=== PATIENT | female | born 1935 | race Caucasian/White ===

== ENCOUNTER → 2016-10-07 | Outpatient (CLI) | payer MEDICARE ==
[~2016-10-07] MED LIST: AMLO5TAB2 PO; AMLO5TAB96 PO; ASPI81 PO; ATOR40TA16 PO; CALC600T34 PO; CHOL400D2 PO; DORZ1SOL2 OU; DORZ2SOL7 EACH EYE; ESCI10TA PO; GLUC1CAP14 PO; GLUC500C56 PO; MULTTAB67 PO; NAPR500 PO; OMEG1CAP53 PO; PREV15CA20 PO; SIMV20 PO; TELM40 PO; ULTR50TA5 PO; VITA400C28 PO; VITATAB56 PO
[2016-10-07 14:42] LABS: AUTOMATED NEUTROPHIL # 1.9 TH/MM3 (1.8-7.7); BASOPHIL % 0.5 % (0.0-2.0); EOSINOPHIL # 0.1 TH/MM3 (0-0.4); HEMATOCRIT 36.8 % (35.0-46.0); HEMO FLAGS DIFF FINAL; LYMPHOCYTE # 2.2 TH/MM3 (1.0-4.8); MEAN CELL VOLUME 93.3 FL (80.0-100.0); MEAN CORPUSCULAR HEMOGLOBIN 31.4 PG (27.0-34.0); MEAN CORPUSCULAR HGB CONC 33.6 % (32.0-36.0); MONO % 10.8 % (0.0-8.0); NEUT % 40.7 % (16.0-70.0); PLATELET COUNT 211 TH/MM3 (150-450); RED BLOOD COUNT 3.94 MIL/MM3 (4.00-5.30); RED CELL DISTRIBUTION WIDTH 13.7 % (11.6-17.2); WHITE BLOOD COUNT 4.7 TH/MM3 (4.0-11.0)
[2016-10-07 14:46] LABS: APTT (PATIENT) 26.6 SEC (24.3-30.1); INTERNATIONAL NORMALIZED RATIO 0.9 RATIO; PROTHROMBIN TIME - PATIENT 10.3 SEC (9.8-11.6)
[2016-10-07 14:49] LABS: ALT (GPT) 23 U/L (10-53); ANION GAP 6 MEQ/L (5-15); AST (GOT) 19 U/L (15-37); BICARBONATE 32.1 MEQ/L (21.0-32.0); BLOOD UREA NITROGEN 12 MG/DL (7-18); CHLORIDE 98 MEQ/L (98-107); GLOMERULAR FILTRATION RATE 106 ML/MIN (>89); GLUCOSE,FASTING 85 MG/DL (74-99); POTASSIUM 4.1 MEQ/L (3.5-5.1); SODIUM (NA) 136 MEQ/L (136-145)
[2016-10-07 14:52] LABS: ALKALINE PHOSPHATASE 89 U/L (45-117); TOTAL BILIRUBIN ADULT 0.4 MG/DL (0.2-1.0)
--- NOTE | 2016-10-07 15:40 | RADRPT ---
EXAM DATE/TIME: 10/07/2016 14:43 [place] COMPARISON: No previous studies available for comparison. INDICATIONS : Evaluate for pneumonia, pneumothorax, or communicable disease. Pre op for hysterectomy. MEDICAL HISTORY : None. SURGICAL HISTORY : None. ENCOUNTER: Initial ACUITY: 1 day PAIN SCORE: 0/10 LOCATION: Bilateral chest FINDINGS: Lungs are slightly hyperexpanded with mild diffuse interstitial prominence. No focal pleural or paren chymal opacities. Cardiomediastinal contours are within normal limits. Bony thorax is intact. CONCLUSION: 1. Mild lung hyperexpansion may reflect some degree of obstructive pulmonary disease. 2. Otherwise, no acute cardiopulmonary disease. Raheem Peña MD on October 07, 2016 at 15:18 Board Certified Radiologist. This report was verified electronically.
--- NOTE | 2016-10-08 12:09 | EKG ---
Date Performed: 10/07/2016 Time Performed: 14:13:53 PTAGE: 80 years EKG: SINUS BRADYCARDIA WITH FIRST DEGREE AV BLOCK RIGHT BUNDLE BRANCH BLOCK ABNORMAL ECG NO PREVIOUS TRACING DOCTOR: Jono Perez Interpretating Date/Time 10/08/2016 12:07:56
== END ==
LOC: CPRE 13:51
PROVIDERS: ATTEND Obstetrics & Gynecology Gynecologic Oncology
DX: Z01.812 Encounter for preprocedural laboratory examination (principal); Z01.811 Encounter for preprocedural respiratory examination; Z01.810 Encounter for preprocedural cardiovascular examination; C54.1 Malignant neoplasm of endometrium; I44.0 Atrioventricular block, first degree; I45.10 Unspecified right bundle-branch block
CPT/HCPCS: 36415; 71020; 80053; 85025; 85610; 85730; 93005

== ENCOUNTER 2016-10-21 05:29 | Observation (INO) | payer MEDICARE ==
[~2016-10-21] VITALS: Ht 171.4 cm; Wt 66.8 kg
[~2016-10-21 05:29] MED LIST changes: -AMLO5TAB96 PO; -ASPI81 PO; -CALC600T34 PO; -DORZ1SOL2 OU; -GLUC500C56 PO; -NAPR500 PO; -OMEG1CAP53 PO; -PREV15CA20 PO; -SIMV20 PO; -ULTR50TA5 PO; -VITA400C28 PO
[2016-10-21] MEDS ORDERED: LEVOFLOXACIN 500 MG PREMIX INJ 100 ML IV SCH (06:00)
[2016-10-21] MEDS ORDERED: SODIUM CHLORIDE FLUSH PRN IV FLUSH (06:00)
[2016-10-21] MEDS ORDERED: HEPARIN SODIUM - SQ 10,000 UNITS/ML VIAL SQ SCH (06:00)
[2016-10-21] MEDS ORDERED: METRONIDAZOLE 500 MG/100 ML ISONTONIC SOLN IV SCH (06:00)
[2016-10-21 06:13] VITALS: BP 151/54; PULSE 63; RESP 16; TEMP 97.9; O2SAT 99
[2016-10-21] MEDS ORDERED: SODIUM CHLORID 0.9% 500 ML IV PRN (06:15)
[2016-10-21] MEDS ORDERED: INSULIN HUMAN REGULAR 1,000 UNITS/10 ML VIAL SQ PRN (06:15)
[2016-10-21] MEDS ORDERED: LACTATED RINGER'S 1000 ML IV PRN (06:15)
[2016-10-21] MEDS ORDERED: POVIDONE IODINE 5% (ANTISEPSIS KIT) 4 APPLICATIONS EACH NARE PRN (06:15)
[2016-10-21] MEDS ORDERED: CHLORHEXIDINE GLUCONATE 2 % 1 PACK (2 CLOTHS) TOPICAL PRN (06:15)
[2016-10-21] MEDS ORDERED: METOPROLOL TARTRATE 25 MG TAB PO PRN (06:15)
[2016-10-21] MEDS ORDERED: fentaNYL CITRATE 250 MCG/5 ML AMP ONE (08:49)
[2016-10-21] MEDS ORDERED: MIDAZOLAM HCL 2 MG/2 ML VIAL ONE (08:49)
[2016-10-21] MEDS ORDERED: ACETAMINOPHEN 1000 MG/100 ML VIAL IV ONE (08:49)
[2016-10-21] MEDS ORDERED: SODIUM CHLORIDE FLUSH BID IV FLUSH SCH (09:00)
[2016-10-21] MEDS ORDERED: LIDOCAINE 1%/EPINEPHrine 1:100,000 SOLN 30 ML VIAL INFIL ONE (09:14)
[2016-10-21] MEDS ORDERED: ONDANSETRON HCL 4 MG/2 ML VIAL IVP PRN (11:15)
[2016-10-21] MEDS ORDERED: SODIUM CHLORIDE 0.9% FLUSH 10 ML FLUSH IV FLUSH PRN (11:15)
[2016-10-21] MEDS ORDERED: diphenhydrAMINE HCL 25 MG CAP PO PRN (11:15)
[2016-10-21] MEDS ORDERED: LORazepam 0.5 MG TAB PO PRN (11:15)
[2016-10-21] MEDS ORDERED: traMADol HCL 50 MG TAB PO PRN (11:30)
[2016-10-21] MEDS: D5-1/2 NS + KCL 20 MEQ INJ 1,000 ML IV SCH ×2 (11:46→21:12)
[2016-10-21] MEDS ORDERED: *morphine SULFATE 8 MG/ML PERIprocedure ONLY ONE (11:55)
[2016-10-21] MEDS ORDERED: METHYLENE BLUE 100 MG/10 ML VIAL IV ONE (12:00)
[2016-10-21] MEDS ORDERED: NORMOSOL R INJ 2,000 ML IV ONE (12:00)
[2016-10-21] MEDS ORDERED: PHENYLEPH/NS 1000 MCG/10 ML SYR IV ONE (12:00)
[2016-10-21] MEDS ORDERED: KETOROLAC TROMETHAMINE 60 MG/2 ML (IM) VIAL IM ONE (12:00)
[2016-10-21] MEDS ORDERED: PROPOFOL 200 MG/20 ML AMP IV ONE (12:00)
[2016-10-21] MEDS ORDERED: NEOSTIGMINE 3 MG/3 ML SYR IV ONE (12:00)
[2016-10-21] MEDS ORDERED: DO NOT ADM ANY ANTICOAGULANT DRUGS PRN (12:00)
[2016-10-21] MEDS ORDERED: ONDANSETRON HCL 4 MG/2 ML VIAL IV PUSH ONE (12:00)
[2016-10-21] MEDS ORDERED: SILVER NITR/POTASSIUM NITRATE APPLICATORS TOPICAL ONE (12:00)
[2016-10-21] MEDS ORDERED: PILL SPLITTER OTHER PRN (12:00)
[2016-10-21] MEDS ORDERED: VECURONIUM BROMIDE 20 MG VIAL IV ONE (12:00)
[2016-10-21] MEDS ORDERED: ePHEDrine/NS 25 MG/5 ML SYR IV ONE (12:00)
[2016-10-21 13:45] VITALS: BP 153/68; PULSE 68; RESP 18; TEMP 95.5; O2SAT 96
--- NOTE | 2016-10-21 14:10 | PD.ONC.PN ---
Subjective Subjective Remarks Post op note: pt resting in bed with family at bedside c/o pain at midline incision site denies any n/v still sleepy Objective Data Date Time Temp Pulse Resp B/P Pulse Ox O2 Delivery O2 Flow Rate FiO2 10/21/16 13:45 95.5 68 18 153/68 96 10/21/16 13:00 97.0 62 18 154/66 98 Nasal Cannula 2 10/21/16 12:15 56 17 140/64 100 Nasal Cannula 2 10/21/16 12:00 51 13 133/60 98 Nasal Cannula 2 10/21/16 11:45 52 14 134/64 100 Nasal Cannula 2 10/21/16 11:30 52 14 144/67 100 Nasal Cannula 2 10/21/16 11:24 97.8 66 14 143/63 99 Nasal Cannula 2 10/21/16 06:13 97.9 63 16 151/54 99 10/21/16 10/21/16 10/21/16 07:00 15:00 23:00 Intake Total 2253 ml Output Total 2700 ml Balance -447 ml Laboratory Results Laboratory Tests Test 10/21/16 06:20 Blood Type O POSITIVE Antibody Screen NEGATIVE Blood Bank Comment Administered Medications Medications (Trade) Dose Ordered Sig/Man Route PRN Reason Start Time Stop Time Status Last Admin Dose Admin Potassium Chloride/Dextrose/ Sod Cl (D5-1/2 NS + KCl 20 Meq Inj) 1,000 ml @ 100 mls/hr Q10H IV 10/21/16 11:12 10/21/16 11:46 Objective Remarks GENERAL: Well-nourished, well-developed patient. SKIN: Warm and dry. HEAD: Normocephalic. EYES: No scleral icterus. No injection or drainage. CARDIOVASCULAR: Regular rate and rhythm without murmurs. RESPIRATORY: Breath sounds equal bilaterally. No accessory muscle use. GASTROINTESTINAL: Abdomen soft, SS are c/d/i EXTREMITIES: TEDs and SCDs MUSCULOSKELETAL: Adequate muscle tone. NEUROLOGICAL: No obvious focal deficit. Awake, alert, and oriented x3. PSYCHIATRIC: Appropriate mood and affect; insight and judgment normal. Assessment/Plan Problem List: (1) Post-operative state Status: Acute Plan: s/p RA lap hyst with BSO and peritoneal bx post op orders in the chart IV Toradol for pain, scheduled Percocet PRN OOB to chair REGGIE Buck D/C in AM anticipate discharge in morning (2) Endometrial cancer Status: Acute Plan: pt will follow up in projection technician/onc clinic in 2 weeks for final pathology Pippa Espino Oct 21, 2016 14:10
[2016-10-21 15:29] VITALS: O2SAT 96
[2016-10-21 15:32] VITALS: O2SAT 96
[2016-10-21 16:00] VITALS: BP 146/64; PULSE 74; RESP 18; TEMP 95.3
[2016-10-21] MEDS: KETOROLAC TROMETHAMINE 30 MG/ML (IVP) VIAL IVP SCH ×2 (18:06→21:54)
[2016-10-21 20:00] VITALS: BP 133/61; PULSE 66; RESP 16; TEMP 96.7; O2SAT 92
[2016-10-21] MEDS: SODIUM CHLORIDE 0.9% FLUSH 10 ML FLUSH IV FLUSH SCH (21:00)
[2016-10-21] MEDS: DORZOLAMIDE/TIMOLOL OPTH SOLN 10 ML BTL EACH EYE SCH (21:00)
[2016-10-21] MEDS ORDERED: ATORVASTATIN 40 MG TAB PO SCH (21:00)
[2016-10-22] VITALS: BP 119/50; PULSE 61; RESP 16; TEMP 97.3; O2SAT 92
[2016-10-22 04:00] VITALS: BP 133/56; PULSE 69; RESP 16; TEMP 96.6; O2SAT 94
[2016-10-22] MEDS: KETOROLAC TROMETHAMINE 30 MG/ML (IVP) VIAL IVP SCH ×2 (04:04→10:21)
[2016-10-22] MEDS ORDERED: ULTR50TA5 PO (06:48)
[2016-10-22] MEDS: D5-1/2 NS + KCL 20 MEQ INJ 1,000 ML IV SCH (07:12)
[2016-10-22] MEDS: SODIUM CHLORIDE 0.9% FLUSH 10 ML FLUSH IV FLUSH SCH (07:53)
[2016-10-22] MEDS: DORZOLAMIDE/TIMOLOL OPTH SOLN 10 ML BTL EACH EYE SCH (07:53)
[2016-10-22 08:00] VITALS: BP 143/57; PULSE 65; RESP 18; TEMP 96.9; O2SAT 92
[2016-10-22] MEDS ORDERED: LOSARTAN 50 MG TAB PO SCH (09:00)
[2016-10-22] MEDS ORDERED: ESCITALOPRAM OXALATE 10 MG TAB PO SCH (09:00)
[2016-10-22] MEDS ORDERED: amLODIPine BESYLATE 5 MG TAB PO SCH (09:00)
[2016-10-22 09:30] LABS: AUTOMATED NEUTROPHIL # 4.5 TH/MM3 (1.8-7.7); BASOPHIL % 0.3 % (0.0-2.0); EOSINOPHIL % 0.3 % (0.0-4.0); HEMATOCRIT 35.9 % (35.0-46.0); HEMO FLAGS DIFF FINAL; LYMPH % 25.3 % (9.0-44.0); LYMPHOCYTE # 1.7 TH/MM3 (1.0-4.8); MEAN CELL VOLUME 95.3 FL (80.0-100.0); MEAN CORPUSCULAR HEMOGLOBIN 30.6 PG (27.0-34.0); MEAN CORPUSCULAR HGB CONC 32.1 % (32.0-36.0); MONO % 8.8 % (0.0-8.0); NEUT % 65.3 % (16.0-70.0); PLATELET COUNT 188 TH/MM3 (150-450); RED BLOOD COUNT 3.76 MIL/MM3 (4.00-5.30); RED CELL DISTRIBUTION WIDTH 14.4 % (11.6-17.2); WHITE BLOOD COUNT 6.9 TH/MM3 (4.0-11.0)
[2016-10-22 09:51] LABS: BICARBONATE 26.7 MEQ/L (21.0-32.0); POTASSIUM 3.8 MEQ/L (3.5-5.1)
[2016-10-22 10:07] LABS: CALCIUM-PROTEIN CORRECTED 7.8 MG/DL (8.5-10.1)
--- NOTE | 2016-10-23 11:07 | MP ---
cc: MARCIN BROOKS KELLY L. MD DATE OF SURGERY: 10/21/2016 PREOPERATIVE DIAGNOSIS: Endometrial adenocarcinoma. POSTOPERATIVE DIAGNOSIS Endometrial adenocarcinoma. Pelvic adhesions. PROCEDURE Robotic-assisted laparoscopic hysterectomy bilateral salpingo-oophorectomy and pelvic peritoneal biopsies. SURGEON Mary SOFTWARE INTEGRATION DEVELOPER [place] oral surgery assistant. ANESTHESIA: General endotracheal anesthesia ESTIMATED BLOOD LOSS 200 cc IV FLUIDS 2000 cc URINE OUTPUT 2000 cc HISTORY 80-year-old female postmenopausal bleeding. She reports only 1 month duration found on exam and imaging to have prominent mass-like effect to the endometrium. She underwent endometrial biopsy which was interpreted as a grade 1 endometrial adenocarcinoma. She was counseled regarding options was in favor of surgical management. She is seen in the preop holding area where the findings and plan are again discussed and reviewed. Questions were answered. She expressed good understanding would like to move forward. FINDINGS Uterine cavity sounded to 8 cm. Her bladder capacity was well above expect, a Buck catheter was placed. She had estimated 1600 cc of fluid removed. The peritoneal cavity the tubes and ovaries grossly appeared normal. There were no appreciably enlarged lymph nodes. In the pelvis the bladder peritoneum was thickened unusual appearance and densely adherent to the uterine wall and cervix on the left side. The colon was adherent to the left pelvic sidewall with some adhesions in the posterior cul-de-sac. Also the cecum was adherent to the anterior abdominal wall on the right and a few other filmy bands of adhesions were noted. The liver diaphragm edges were smooth. The omentum grossly appeared normal. The large and small bowel and adjacent mesentery grossly appeared normal without peritoneal implants. The uterus once removed was evaluated by pathology it was a 4 cm exophytic tumor, although it arose from multiple locations in the endometrium and it extended into the endometrial cavity and estimated depth of invasion was only 1-2 mm. No areas of deep myometrial invasion or tenderness or cervical extension were noted. Statement of complexity; the complexity of the case was increased due to the adhesions as noted above, significant amount time was required to lyse adhesions to store normal anatomy and accomplish surgical objectives. Modifier should be applied accordingly. PROCEDURE The patient taken to the operating room placed in dorsal lithotomy position after general endotracheal anesthesia was administered. A time-out was undertaken, the patient was identified by sight recognition and hospital ID bracelet and the proposed procedure was reviewed and confirmed. She was carefully positioned in padded Lele stirrups. Her arms were padded and secured to the sides. She was further secured to operating table with egg crate padding and tape in across chest over the shoulder fashion. All sites noted be properly aligned with no malalignments or pressure points. She was prepped in sterile fashion, draped below the waist, placed in high lithotomy position, cervix grasped, uterine cavity was sounded and small Vcare manipulator was inserted and secured usual fashion. Buck catheter was placed in the bladder with large volume of urine output as noted above. We can change of sterile gloves was undertaken. We completed draping in anticipation of laparoscopy confirmed that an orogastric airway was in the stomach on suction. With manual elevation of the abdominal wall a 5 mm cannula was introduced into the left upper quadrant and an atraumatic entry was confirmed. Carbon dioxide gas was insufflated. 12 mm cannula placed in the midline above the umbilicus 8 mm cannulas placed in the right upper quadrant left lateral quadrant and the original 5-mm exchanged for a 8-mm cannula. She was placed in steep Trendelenburg position. Peritoneal washings were obtained for cytology. Adhesions were taken down using sharp dissection the anatomy was explored with findings as described above. The small bowel was folded back on its mesenteric root and three Ray-Corinna sponges were placed around the root of the small bowel mesentery. Robotic system brought into the operative field attached in usual fashion. Monopolar scissors, fenestrated bipolar forceps and progressed manipulators were placed in arms numbers one, two and three respectively and I took my place at the surgeon's console. Right round ligament was isolated, cauterized transected. The anterior and posterior leafs of the broad ligament were opened. The right ureter was identified. The right infundibulopelvic ligament was isolated, the intervening peritoneum was opened. The infundibulopelvic ligament was isolated to the level of the pelvic brim was cauterized and transected. Posterior peritoneum opened along the right side of the uterus and cervix and the right vesicouterine peritoneum was dissected off the lower uterine segment and cervix and additional adhesions were taken down. The right uterine vessels were skeletonized and cauterized and transected as were the cardinal paracervical and uterosacral ligaments. Adhesions were taken down mobilizing the colon from its attachments to the left pelvic sidewall freeing up the ovary from and adhesions in the posterior cul-de-sac and the round ligament was isolated, cauterized and transected as the anterior and posterior leafs of the broad ligament were further opened. The left ureter was identified left infundibulopelvic ligament was isolated. The intervening peritoneum was opened infundibulopelvic ligament was dissected to the level of the pelvic brim where was cauterized and transected. Posterior peritoneum taken down off the left side of uterus and cervix and additional lysis of adhesions was required to free the thickened and abnormal appearing peritoneal fold over near the left bladder peritoneum as it was adherent, to the uterine and cervical huitron. Somewhat making difficult to identify the border of the bladder but continued sharp dissection, blunt dissection allowed mobilization of the bladder below the level of the cervix. Now as the left uterine vessels were skeletonized, they were cauterized and transected as were the cardinal paracervical and uterosacral ligaments colpotomy was performed the cervix from the upper vagina and the specimen was the withdrawn including uterus, cervix, tubes and ovaries. Instruments one and three exchanged for needle drivers as a 0 Vicryl suture was introduced vaginal cuff was closed starting at the left corner full-thickness closure including the posterior peritoneum and edge of the uterosacral ligament, tied via instrument tie. The closure was held on countertraction as a running continuous full-thickness closure was carried across the vaginal cuff to the contralateral corner where similarly fixed and secured tied via instrument tie. The needle was cut and removed. The integrity of the bladder was confirmed by filling the bladder with saline dyed with methylene blue. There were no thin spots in the bladder and certainly no extravasation of dye. There was a good margin between the edge of the bladder and the vaginal cuff suture line and a thickened peritoneum and adhesions were able to be identified. Per from the wall of the bladder such that these were removed with sharp dissection and focal point cautery removed as a facet cyst approximately 2 cm segment of peritoneum and removed as peritoneal biopsy. The bladder was drained. The pelvis was thoroughly irrigated. Small bleeders rendered hemostatic with bipolar cautery. Sites were hemostatic and hemostatic Michael powder was placed across the vaginal cuff and lateral pelvic sidewalls. At the pathology came back showing only minimal microscopic invasion in spite of a large tumor was a grade 1 tumor with there was essentially superficial no cervical extension. No other suspicious findings in the peritoneal cavity, combined with our it being 80 years old it was felt that the morbidity of lymphadenectomy would likely exceed the benefit and therefore is felt that all reasonable surgical objectives had been completed. The robotic instruments were removed. The robotic system. Robotic system was disengaged from the operative field. I reentered the bedside under sterile condition. Each of the three Ray-Corinna sponges that were placed in the peritoneum were now removed through the 12-mm cannula. There were removed individually each inspected and noted to be removed in their entirety. Also the peritoneal resection of peritoneum biopsy specimen was grasped with a blunt grasper and withdrawn through the 12-mm cannula. Inspection of the peritoneal cavity confirmed there were no remaining foreign objects in the peritoneum. Preliminary counts were correct and attention was directed toward closing. The fascia was closed with 0 Vicryl sutures in at the using a needle pass apparatus with her tied securely rendering the fascia completely airtight and hemostatic. The remaining cannulas were withdrawn. Carbon dioxide gas as carbon dioxide gas was removed. 3-0 Vicryl. The pain is 3-0 Vicryl subcuticular and Steri-Strips used to close these incisions. She was returned to dorsal lithotomy position. Inspection confirmed that the vaginal cuff was well-supported. There was there were no vaginal lacerations. There was some superficial irritation at the introitus rendered hemostatic with silver nitrate application final counts were correct. She was returned to dorsal supine position and was pending reversal of anesthesia when I left the operating room to precede her to the Post Anesthesia Care Unit. MD SHIN Love/drew /1:59 PM /10:56 AM
--- NOTE | 2016-10-26 13:34 | MD ---
cc: MARCIN BROOKS,JIHAN NICHOLS MD, M.D. ADMISSION DATE: 10/21/2016 DISCHARGE DATE: 10/22/2016 PROCEDURE 10/21/2016 - Robotic-assisted laparoscopic hysterectomy, bilateral salpingo-oophorectomy, excisional biopsy of peritoneal nodule, lysis of adhesions. DIAGNOSIS Endometrial cancer. HOSPITAL COURSE She did well in the early postop period. Ins and outs of 2733/3050. Labs pending at the time of this dictation. She is tolerating oral intake. Buck catheter removed, voiding is pending. PHYSICAL EXAMINATION VITAL SIGNS: She is afebrile, pulse 61-74, respirations 16-18, blood pressure 119-146/50-64. Saturations greater than or equal to 94% while awake. LUNGS: Clear. Rales at the bases. CARDIOVASCULAR: Regular rate and rhythm. ABDOMEN: Soft. Incisions clean and dry. SENIOR DATA WAREHOUSE DEVELOPER: No bleeding. EXTREMITIES: Nontender. ASSESSMENT Postop day #1. Preliminary findings at the time of surgery reviewed. Final pathology pending. Activities and restrictions discussed. Questions were answered. She expressed good understanding and agreed. PLAN Anticipate she will meet criteria for discharge to home today and she is to contact our office to schedule followup in two weeks. She is to resume her prior medication and a prescription is provided for Ultram for pain. Our office number is made available again should she have any questions or problems between now and the time of followup. Georgiana Hernandez MD KM/JONATHAN /6:56 AM /1:32 PM
== END 2016-10-22 11:02 | disposition home or self-care (01) ==
LOC: HSDC 05:29 → HSDI 11:15 → HOCB 13:31
PROVIDERS: ADMIT Obstetrics & Gynecology Gynecologic Oncology; ATTEND Obstetrics & Gynecology Gynecologic Oncology
DX: C54.1 Malignant neoplasm of endometrium (principal); C78.6 Secondary malignant neoplasm of retroperitoneum and peritoneum; N73.6 Female pelvic peritoneal adhesions (postinfective); I10 Essential (primary) hypertension; H40.9 Unspecified glaucoma; M19.90 Unspecified osteoarthritis, unspecified site; M81.0 Age-related osteoporosis without current pathological fracture; Z88.1 Allergy status to other antibiotic agents; Z88.0 Allergy status to penicillin; Z88.8 Allergy status to other drugs, medicaments and biological substances; Z85.828 Personal history of other malignant neoplasm of skin; Z87.891 Personal history of nicotine dependence
CPT/HCPCS: 00840; 58571; 80048; 84155; 85025; 86850; 86900; 86901; 88112; 88305; 88309; 88311; 88329; 94150; G0378; J0131; J1644; J1885; J2250; J2270; J2370; J2405; J2710; J3010; J3480; J7120; 88307; 88331